=== PATIENT | female | born 2000 | race Caucasian/White ===

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

== ENCOUNTER 2022-03-11 16:28 | Emergency (ER) | payer OTHER ==
[~2022-03-11 16:28] MED LIST changes: +PRENATAL VITAM1 EAC8 PO
[2022-03-11 19:11] LABS: HEMOGLOBIN 14.9 gm/dl (12.3-15.3); RED BLOOD COUNT 5.61 M/UL (4.00-5.10); WHITE BLOOD COUNT 6.5 K/UL (4.5-11.0)
[2022-03-11 19:45] LABS: BUN/CREATININE RATIO 18 (0-10)
[2022-03-11] MEDS ORDERED: IMODIUM CAP 2 MG2 MG PO (23:01)
[2022-03-11] MEDS ORDERED: CEPHALEXIN500 M1 PO (23:01)
[2022-03-11] MEDS ORDERED: ONDANSETRON ODT4 MG SL (23:01)
== END 2022-03-11 23:06 | disposition home or self-care (01) ==
LOC: ER1 16:28
PROVIDERS: Physician Assistant
DX: N39.0 Urinary tract infection, site not specified (principal); I88.0 Nonspecific mesenteric lymphadenitis; I10 Essential (primary) hypertension; Z79.01 Long term (current) use of anticoagulants
CPT/HCPCS: 80053; 81001; 83690; 84703; 85025; 87086; 96374; 96375; 99284; C9113; J1885; J2405; Q9967